=== PATIENT | male | born 1955 | race Caucasian/White ===

== ENCOUNTER 2017-01-21 17:54 | Emergency (ER) | payer OTHER ==
[~2017-01-21] VITALS: Ht 172.7 cm; Wt 80.9 kg
[2017-01-21 19:56] VITALS: BP 154/89
== END 2017-01-21 19:56 | disposition left against medical advice (07) ==
LOC: EME 17:54
DX: F10.129 Alcohol abuse with intoxication, unspecified (principal); Z95.1 Presence of aortocoronary bypass graft; Z53.20 Procedure and treatment not carried out because of patient's decision for unspecified reasons
CPT/HCPCS: 99281; 99283